=== PATIENT | female | born 1970 | race Caucasian/White ===

== ENCOUNTER 2016-08-19 13:02 | Outpatient (CLI) | END 2016-08-19 13:03 | disposition home or self-care (01) ==

== ENCOUNTER 2016-11-26 15:45 | Outpatient (CLI) | payer OTHER | END 2016-11-26 15:46 | disposition home or self-care (01) | DX: G47.33 Obstructive sleep apnea (adult) (pediatric) (principal) ==

== ENCOUNTER 2017-01-27 15:52 | Outpatient (CLI) | payer OTHER | END 2017-01-27 15:53 | disposition home or self-care (01) | LOC: SC 15:52 | PROVIDERS: ATTEND Nurse Practitioner Family | DX: G47.33 Obstructive sleep apnea (adult) (pediatric) (principal) | CPT/HCPCS: 99212; 99214 ==

== ENCOUNTER 2017-05-04 15:53 | Outpatient (CLI) | payer OTHER | END 2017-05-04 15:54 | disposition home or self-care (01) | LOC: SC 15:53 | PROVIDERS: ATTEND Nurse Practitioner Family | DX: G47.33 Obstructive sleep apnea (adult) (pediatric) (principal) | CPT/HCPCS: 99212; 99214 ==

== ENCOUNTER 2018-02-03 15:47 | Outpatient (CLI) | payer OTHER | END 2018-02-03 15:48 | disposition home or self-care (01) | LOC: SC 15:47 | PROVIDERS: ATTEND Nurse Practitioner Family | DX: G47.33 Obstructive sleep apnea (adult) (pediatric) (principal) | CPT/HCPCS: 99212; 99214 ==

== ENCOUNTER 2021-06-28 11:38 | Emergency (ER) | payer OTHER ==
[2021-06-28] MEDS ORDERED: SODIUM CHLORIDE 0.9% 1,000 ML IV STA ×2 (12:13→14:18)
[2021-06-28 12:14] LABS: BASOPHILS % (AUTO) 0.5 %; EOSINOPHILS % (AUTO) 0.2 %; HCT - HEMATOCRIT 52.9 % (37.0-47.0); HGB - HEMOGLOBIN 17.9 g/dL (12.0-16.0); LYMPHOCYTES # (AUTO) 0.9 10^3/uL (1.5-3.5); LYMPHOCYTES % (AUTO) 14.9 %; MEAN CORPUSCULAR HEMOGLOBIN 30.2 pg (27.0-31.0); MEAN CORPUSCULAR HGB CONC 33.8 g/dL (32.0-36.0); MEAN CORPUSCULAR VOLUME 89.2 fL (81.0-99.0); MEAN PLATELET VOLUME 10.1 fL (7.9-10.8); MONOCYTES # (AUTO) 0.4 10^3/uL (0.0-1.0); MONOCYTES % (AUTO) 6.7 %; NEUTROPHILS # (AUTO) 4.9 10^3/uL (1.5-6.6); NEUTROPHILS % (AUTO) 77.4 %; PLT - PLATELET COUNT 358 10^3/uL (130-450); RED BLOOD COUNT 5.93 10^6/uL (4.20-5.40); WHITE BLOOD COUNT 6.3 x10^3/uL (4.8-10.8)
--- NOTE | 2021-06-28 12:20 | ED Physician Documentation ---
History of Present Illness - Stated complaint Stated Complaint: C+, DIZZY SOA - Additonal information Additional information: 51-year-old female presents the emergency department for evaluation of productive cough fatigue myalgias chest pressure and dizziness. She reports that on June 18 she began having cough and congestion took a rapid home Covid test and was positive. Over the last week she has had low-grade temperature elevations up to 99. She endorses loss of taste but not smell. Past medical history most significant for hypertension. Denies alcohol or tobacco use. She has not yet vaccinated for COVID-19. She was waiting for her job to mandate it. She would like MAB is available to her today Review of Systems Constitutional: reports: Fever, Chills, Myalgias Eyes: reports: Reviewed and negative Ears: reports: Reviewed and negative Nose: reports: Congestion, Other (loss of taste but not smell) Throat: reports: Dental pain / toothache Cardiac: reports: Chest pain / pressure, Palpitations. denies: Pedal edema, Calf pain Respiratory: reports: Dyspnea, Cough. denies: Hemoptysis, Wheezing GI: denies: Abdominal Pain, Nausea, Vomiting, Diarrhea : denies: Dysuria, Frequency, Hesitancy Skin: denies: Rash, Lesions Musculoskeletal: denies: Neck pain PD PAST MEDICAL HISTORY - Present Medications Home Medications: Ambulatory Orders Medication Instructions Recorded Confirmed Albuterol Sulfate [Proair Hfa 1 - 2 puffs INH Q4H PRN #1 gm 06/28/21 Inhaler] Benzonatate [Tessalon] 100 mg PO TID PRN #20 cap 06/28/21 hydroCHLOROthiazide [Hydrodiuril] 25 mg PO DAILY 06/28/21 06/28/21 lisinopriL [Zestril] 5 mg PO DAILY 06/28/21 06/28/21 - Allergies Allergies/Adverse Reactions: Allergies Allergy/AdvReac Type Severity Reaction Status Date / Time methocarbamol AdvReac Unknown Verified 06/28/21 11:57 PD ED PE EXPANDED - General General: Alert, No acute distress, Well developed/nourished (obese) - Cardiac Cardiac: Regular Rate, Tachy, Radial strong equal, Cap refill < 2 sec. No: Murmur Present - Respiratory Respiratory: Rhonchi (generalized rhonci RUL; no wheeze). No: Distress, Labored - Abdomen Abdomen: No: Tender to palpation - Derm Derm: Normal color, Warm and dry. No: Rash - Extremities Extremities: Normal. No: Deformity, Tenderness, Pedal edema bilateral, Right calf TTP/cord, Left calf TTP/cord - Neuro Neuro: Alert and Oriented X 3, CNII-XII intact Results - Vitals Vitals: Vital Signs - 24 hr 06/28/21 06/28/21 12:12 12:21 Temperature 36.7 C 36.9 C Heart Rate 112 H 91 Respiratory 20 Rate Blood Pressure 155/109 H 155/90 H O2 Saturation 100 99 Oxygen O2 Source Room air - EKG (time done) 1240 Rate: Rate (enter#) (83) Rhythm: NSR [place]: Normal Intervals: Normal TN. No: Prolonged QT QRS: Normal Ischemia: Normal ST segments Compare to prior EKG: Old EKG unavailable Computer interpretation: Agree with computer - Labs Labs: Laboratory Tests 06/28/21 06/28/21 06/28/21 12:07 12:07 12:07 WBC 6.3 RBC 5.93 H Hgb 17.9 H Hct 52.9 H MCV 89.2 MCH 30.2 MCHC 33.8 RDW 13.0 Plt Count 358 MPV 10.1 Neut # (Auto) 4.9 Lymph # (Auto) 0.9 L [place] # (Auto) 0.4 Eos # (Auto) 0.0 Baso # (Auto) 0.0 Absolute Nucleated RBC 0.00 Nucleated RBC % 0.0 Sodium 136 Potassium 3.4 L Chloride 100 L Carbon Dioxide 22 Anion Gap 14.0 H BUN 21 H Creatinine 0.9 Estimated GFR (MDRD) 65 L Glucose 129 H Calcium 9.7 Total Bilirubin 0.9 AST 60 H ALT 77 H Alkaline Phosphatase 100 Troponin I High Sens 4.0 Total Protein 7.9 Albumin 4.8 Globulin 3.1 Albumin/Globulin Ratio 1.5 Lipase 32 Nasal Adenovirus (PCR) Nasal B. parapertussis DNA (PCR) Nasal Coronavir 229E PCR Nasal Coronavir HKU1 PCR Nasal Coronavir NL63 PCR Nasal Coronavir OC43 PCR Nasal Enterovir/Rhinovir PCR Nasal Influenza B PCR Nasal Influenza A PCR Nasal Parainfluen 1 PCR Nasal Parainfluen 2 PCR Nasal Parainfluen 3 PCR Nasal Parainfluen 4 PCR Nasal RSV (PCR) Nasal B.pertussis DNA PCR Nasal C.pneumoniae (PCR) Lonnie Human Metapneumo PCR Nasal M.pneumoniae (PCR) Nasal SARS-CoV-2 (PCR) 06/28/21 12:30 WBC RBC Hgb Hct MCV MCH MCHC RDW Plt Count MPV Neut # (Auto) Lymph # (Auto) [place] # (Auto) Eos # (Auto) Baso # (Auto) Absolute Nucleated RBC Nucleated RBC % Sodium Potassium Chloride Carbon Dioxide Anion Gap BUN Creatinine Estimated GFR (MDRD) Glucose Calcium Total Bilirubin AST ALT Alkaline Phosphatase Troponin I High Sens Total Protein Albumin Globulin Albumin/Globulin Ratio Lipase Nasal Adenovirus (PCR) NOT DETECTED Nasal B. parapertussis DNA (PCR) NOT DETECTED Nasal Coronavir 229E PCR NOT DETECTED Nasal Coronavir HKU1 PCR NOT DETECTED Nasal Coronavir NL63 PCR NOT DETECTED Nasal Coronavir OC43 PCR NOT DETECTED Nasal Enterovir/Rhinovir PCR NOT DETECTED Nasal Influenza B PCR NOT DETECTED Nasal Influenza A PCR NOT DETECTED Nasal Parainfluen 1 PCR NOT DETECTED Nasal Parainfluen 2 PCR NOT DETECTED Nasal Parainfluen 3 PCR NOT DETECTED Nasal Parainfluen 4 PCR NOT DETECTED Nasal RSV (PCR) NOT DETECTED Nasal B.pertussis DNA PCR NOT DETECTED Nasal C.pneumoniae (PCR) NOT DETECTED Lonnie Human Metapneumo PCR NOT DETECTED Nasal M.pneumoniae (PCR) NOT DETECTED Nasal SARS-CoV-2 (PCR) DETECTED A - Rads (name of study) CXR Radiology: Final report received (no acute cardiopulmonary abnormlity ) PD MEDICAL DECISION MAKING - ED course Complexity details: reviewed results, re-evaluated patient, d/w patient ED course: 51-year-old female presents emergency department for evaluation of cough congestion chest pressure. She began having symptoms about 10 days ago for COVID-19 and did test positive with a rapid home test. She is here today hoping to receive monoclonal antibodies. Chest x-ray shows no acute focal opacity. She remains positive for COVID-19 and given that her symptoms began within the last 10 days we have proceeded with monoclonal antibody therapy. Mab therapy for this patient with Covid was considered and discussed with the patient. The patient was provided the handout: ``Casirivimab plus Imdevimab Fact Sheet for Patients, Parents and Caregivers, and the information within was discussed with the patient. The patient was informed of alternatives prior to receiving Mab therapy. The patient was informed that these medications are unapproved drugs that are authorized for use under Emergency Use Authorization by the FDA. The patient will be monitored for at least 1 hour after infusion is complete. Her screening EKG shows no ischemic changes. Troponin is negative. She does have a modestly hemoconcentrated hemoglobin at 17.9. She was given 2 L of crystalloid here in the emergency department. We do note some mild LFT abnormalities. No significant T bili elevation. She is free of abdominal pain. The abnormal LFTs were discussed with the patient she is encouraged to follow- up with her primary care provider as an outpatient. Prescription for albuterol and Tessalon Perles was sent to the [facility]. Otherwise emergent return precautions were discussed. Departure - Departure Disposition: 01 Home, Self Care Clinical Impression: COVID-19, Elevated LFTs Prescriptions: Albuterol Sulfate [Proair Hfa Inhaler] 1 - 2 puffs INH Q4H PRN #1 gm PRN Reason: Shortness Of Air/Wheezing Benzonatate [Tessalon] 100 mg PO TID PRN #20 cap PRN Reason: Cough Comments: Monique muniz are seen today in the emergency department for cough and congestion. Your Covid test today is positive. Your symptoms began about 10 days ago and we did give you monoclonal antibody therapy here in the ER. It is important that you continue to quarantine for at least 10 days. Those living with you must quarantine for at least 90 days. You are a candidate to get the Covid vaccines but you must wait at least 90 days after Covid infection or receiving the monoclonal antibodies. Screening labs today show fairly concentrated hemoglobin as well as a mildly elevated BUN. You are somewhat dehydrated. I do encourage you to drink plenty of fluids at home. Your liver function tests are also slightly abnormal. You do report of a history of previous overuse of alcohol as well as excessive Tylenol use. When you are feeling better encourage you to follow-up the abnormal liver function test with your primary care provider. Those that have COVID-19 can benefit from sleeping on their stomach if they are able. If at any point you feel that your symptoms are worsening, you are developing worse fevers increasing shortness of breath have oxygen levels less than 90% then please return immediately to the ER for a second evaluation. Your prescriptions were sent to the [facility] [place]
[2021-06-28 12:34] LABS: ALBUMIN 4.8 g/dL (3.2-5.5); ALBUMIN/GLOBULIN RATIO 1.5 (1.0-2.2); BILIRUBIN,TOTAL 0.9 mg/dL (0.2-1.0); CALCIUM 9.7 mg/dL (8.5-10.3); CREATININE 0.9 mg/dL (0.4-1.0); POTASSIUM 3.4 mmol/L (3.5-5.0); TOTAL PROTEIN 7.9 g/dL (6.7-8.2)
--- NOTE | 2021-06-28 12:53 | XRAY Report ---
PROCEDURE: Chest 1 View X-Ray INDICATIONS: Areas of breath TECHNIQUE: One view of the chest was acquired. COMPARISON: None FINDINGS: Surgical changes and devices: None. Lungs and pleura: No pleural effusions or pneumothorax. Lungs are clear. Mediastinum: Mediastinal contours appear normal. Heart size is normal. Bones and chest wall: No suspicious bony lesions. Overlying soft tissues appear unremarkable. IMPRESSION: No acute cardiopulmonary abnormality. Reviewed by: Sav Hearn on 06/28/2021 12:51 PM [facility] Approved by: Sav Hearn on 06/28/2021 12:51 PM [facility] Station ID: [id number]
[2021-06-28 13:29] LABS: CORONAVIRUS 229E-RESP PCR NOT DETECTED; CORONAVIRUS HKU1-RESP PCR NOT DETECTED; CORONAVIRUS NL63-RESP PCR NOT DETECTED; CORONAVIRUS OC43-RESP PCR NOT DETECTED
[2021-06-28 13:30] LABS: B. PARAPERTUSSIS- RESP PCR PAN NOT DETECTED; B. PERTUSSIS- RESP PCR PANEL NOT DETECTED; C. PNEUMONIAE- RESP PCR PANEL NOT DETECTED; HUMAN METAPNEUMOVIRUS NOT DETECTED; INFLUENZA A- RESP PCR PANEL NOT DETECTED; INFLUENZA B - RESP PCR PANEL NOT DETECTED; M. PNEUMONIAE- RESP PCR PANEL NOT DETECTED; PARAINFLUENZA VIRUS 1 NOT DETECTED; PARAINFLUENZA VIRUS 2 NOT DETECTED; PARAINFLUENZA VIRUS 3 NOT DETECTED; PARAINFLUENZA VIRUS 4 NOT DETECTED; RHINOVIRUS/ENTEROVIRUS NOT DETECTED; RSV- RESP PCR PANEL NOT DETECTED
[2021-06-28 13:37] LABS: SARS-CoV-2 -RESP PCR PANEL DETECTED
[2021-06-28] MEDS ORDERED: CASIRIVIMAB/IMDEVIMAB 10 ML in SODIUM CHLORIDE 0.9% 50 ML IV ONE (14:10)
[2021-06-28 15:54] VITALS: BP 140/70
== END 2021-06-28 15:54 | disposition home or self-care (01) ==
LOC: ED 11:38
DX: U07.1 COVID-19 (principal); E86.0 Dehydration; R74.8 Abnormal levels of other serum enzymes; I10 Essential (primary) hypertension
CPT/HCPCS: 0202U; 36415; 71045; 80053; 83690; 84484; 85025; 93005; 96360; 96361; 99283; J7040; M0243; Q0244

== ENCOUNTER 2022-02-19 15:30 | Outpatient (CLI) | payer BC, OTHER ==
[2022-02-19 16:13] VITALS: BP 119/75
--- NOTE | 2022-02-19 16:13 | SLEEP CARE CONSULTATION ---
Information from patient questionnaire entered by Jose Berry MA. I have reviewed and concur with the information entered by Jose Berry MA. This document represents the service I personally performed and the decisions made by , Viola Prince ARNP. History of Present Illness Service Date and Time: 02/19/2022 1530 Previous diagnosis: Mild, Obstructive Sleep Apnea-Hypopnea Syndrome AHI: 9.6 Reason for follow up: annual ([place] 10/20/16, NEW RX? ) Equipment type: CPAP Equipment obtained from: [employer] (getting supplies as needed) Mask style: Nasal (Wisp) Mask brand: Respironics Backup mask available: Yes (old mask) Last cushion change: last week Prior sleep studies: Yes HPI additional information: BONG LOPEZ was diagnosed to have mild, AHI 9.6, obstructive sleep apnea-hypopnea syndrome and returned today for CPAP therapy annual follow-up. Sleep Study - Results Prior sleep studies: Yes CPAP Compliance Data - Data Reviewed with Patient Average duration of nightly device use: 7 HOURS 27 MINUTES Compliance rate %: 95.6 (90 days; 86/90 days used) Current pressure setting (cmH2O): 7.5 Humidity settin Heated hose settin Average residual AHI: 4.4 Average large leak: 0 Subjective Missed days of use due to: reports: travel (vacation/camping) Patient concerns: reports: air blowing in eyes, condensation in mask/hose (comes and goes). denies: aerophagia, mask discomfort, mask leak noise, nasal congestion, dry mouth, nose, throat, epistaxis, other Observed to snore while using device: No Current pressure setting perceived as: comfortable On therapy, patient: reports: sleeping better, awakening more refreshed, being more awake and alert during the day, more rested overall. denies: drowsiness while driving Initial [place] Sleepiness Scale score: 11 Current [place] Sleepiness Scale score: 9 (02/19/2022) Allergies and Home Medications Drug allergies reviewed: Yes (Robaxin) Home medication list reviewed: Yes (Paxil 7 mg for anxiety) Allergy and home medication list: Allergies methocarbamol Adverse Reaction (Verified 06/28/21 11:57) Unknown PAXIL 7 MG OD Review of Systems Review of systems same as previous: Yes (no changes) Physical Exam Vital signs obtained and entered by: Edward BERRY CMA NORM Blood Pressure: 119/75 (RESP 16, PULSE 76, RIGHT) Heart Rate: 75 O2 Saturation: 97 (PAPER MASK) Height: 5 ft 7 in Weight: 282 lb (CLOTHES) Weight change since last visit: LOOSE WEIGHT, LIMIT FOODS Body Mass Index: 44.1 BMI Classification: Morbidly Obese Impression and Plan 1. Obstructive Sleep Apnea-Hypopnea Syndrome, mild, with good treatment compliance and good apnea control. On CPAP therapy, the patient has better sleep quality and is more rested overall. Patient residual AHI is 4.4. I will increase her pressure to 8.5 cmH2O to help reduce this further. Patient has a Dreamstation that was last updated in 10/2016. I informed the patient that [employer] has a recall on several devices like the patients machine. Patient was encouraged to register their device online with [employer] for the recall to see if their device is affected. If their device is affected they should start a claim. Patient denies any black particles seen in machine or hoses, any unusual odors coming from device. Patient has not experienced any physical symptoms such as upper airway irritation, headache, skin or eye irritation, asthma, nausea/vomiting, difficulty breathing or chest pain. If patient is not able to sleep due to waking up choking, gasping for air or other respiratory distress that they may decide to continue using it until it is either replaced or repaired. Since the patients current machine is at least 5 years old, the patient is opting to update their device with a device that is not on the recall. Patient voiced understanding and agreement with plan. Patient's apnea severity and rationale for treatment to reduce apnea, improve sleep quality and reduce cardiovascular and cerebrovascular events was reviewed. I also reviewed the benefit of consistent device use of CPAP for hypertension. Patient has lost weight since her last visit and she was advised to continue to try to lose weight. She voiced understanding and agreement. * Update machine * Update supplies * Change auto CPAP pressure to 8.5 cmH2O * Notify me if snoring with mask or feeling that the pressure is too much or too little * Continue to try to lose weight * Call this office if any problems using CPAP * Return for follow up one month after receive new device, or sooner if concerns arise Counseling Topics: Weight loss health impact Visit Type: In Office Time Spent with Patient (minutes): 22 Provider Statement: I spent 100% of the Face to Face Visit with the patient with greater than 50% spent counseling the patient and coordination of care.
== END 2022-02-19 15:31 | disposition home or self-care (01) ==
LOC: SC 15:30
PROVIDERS: ATTEND Nurse Practitioner Family
DX: G47.33 Obstructive sleep apnea (adult) (pediatric) (principal); E66.01 Morbid (severe) obesity due to excess calories; Z68.41 Body mass index [BMI] 40.0-44.9, adult
CPT/HCPCS: 99212; 99213

== ENCOUNTER 2022-06-20 16:14 | Outpatient (CLI) | payer BC, OTHER ==
--- NOTE | 2022-06-20 16:30 | SLEEP CARE CONSULTATION ---
Information from patient questionnaire entered by Marly Willoughby. I have reviewed and concur with the information entered by Marly Willoughby. This document represents the service I personally performed and the decisions made by me, Viola Prince ARNP. History of Present Illness Service Date and Time: 06/20/2022 1614 Previous diagnosis: Mild, Obstructive Sleep Apnea-Hypopnea Syndrome AHI: 9.6 Reason for follow up: first compliance after device update Equipment type: CPAP (resmed) Equipment obtained from: [employer] (getting supplies as needed) Mask style: Nasal (Wisp) Backup mask available: Yes (old mask) Last cushion change: 1 month Prior sleep studies: Yes HPI additional information: BONG LOPEZ was diagnosed to have mild, AHI 9.6, obstructive sleep apnea-hypopnea syndrome and returned today for CPAP therapy first compliance after updating device follow-up. Sleep Study - Results Prior sleep studies: Yes CPAP Compliance Data - Data Reviewed with Patient Average duration of nightly device use: 7hrs, 35 min Compliance rate %: 100 (05/19/2022-06/17/2022; 30/30 days used) Current pressure setting (cmH2O): 8.4 Average residual AHI: 1.2 Central apnea: 0.3 Obstructive apnea: 0.7 Subjective Patient concerns: denies: aerophagia, mask discomfort, air blowing in eyes, mask leak noise, condensation in mask/hose, nasal congestion, dry mouth, nose, throat, epistaxis Observed to snore while using device: No Current pressure setting perceived as: comfortable On therapy, patient: reports: sleeping better, awakening more refreshed, being more awake and alert during the day, more rested overall. denies: drowsiness while driving Initial [place] Sleepiness Scale score: 11 Current [place] Sleepiness Scale score: 11 (06/20/2022) Allergies and Home Medications Drug allergies reviewed: Yes (Robaxin) Home medication list reviewed: Yes (no changes) Review of Systems Review of systems same as previous: Yes (no changes) Physical Exam Vital signs obtained and entered by: Marly Bahena MA Blood Pressure: 122/74 (left arm) Cuff size: long Heart Rate: 67 O2 Saturation: 97 Height: 5 ft 7 in Weight: 289 lb 6.4 oz Body Mass Index: 45.3 BMI Classification: Morbidly Obese Impression and Plan 1. Obstructive Sleep Apnea-Hypopnea Syndrome, mild, with good treatment compliance and good apnea control. On CPAP therapy, the patient has better sleep quality and is more rested overall. Patient has significant improvement of their sleep apnea and are satisfied with current CPAP therapy. Patient denies problems with oral dryness, nasal congestion, epistaxis, skin irritation or aerophagia. Patient's apnea severity and rationale for treatment to reduce apne a, improve sleep quality and reduce cardiovascular and cerebrovascular events was reviewed. I also reviewed the benefit of consistent device use of CPAP for hypertension. 2. Obesity, unspecified. Currently patients BMI is 45.3. Obesity increases the risk of apnea, CPAP pressure requirements and overall health risks especially cardiovascular and diabetes. Thus patient is advised to lose weight. Weight loss can be done with reducing portion size, reducing refined foods and balancing content with vegetables, fruit and whole grain foods. In addition, patient encouraged to get regular exercise. * Continue CPAP pressure at 8.4 cmH2O * Notify me if snoring with mask or feeling that the pressure is too much or too little * Attempt to lose weight * Call this office if any problems using CPAP * Return for follow up in 1 year, or sooner if concerns arise Counseling Topics: Weight loss health impact Visit Type: In Office Time Spent with Patient (minutes): 10 Provider Statement: I spent 100% of the Face to Face Visit with the patient with greater than 50% spent counseling the patient and coordination of care.
[2022-06-20 16:32] VITALS: BP 122/74
== END 2022-06-20 16:15 | disposition home or self-care (01) ==
LOC: SC 16:14
PROVIDERS: ATTEND Nurse Practitioner Family
DX: G47.33 Obstructive sleep apnea (adult) (pediatric) (principal); E66.01 Morbid (severe) obesity due to excess calories; Z68.42 Body mass index [BMI] 45.0-49.9, adult
CPT/HCPCS: 99212

== ENCOUNTER 2023-06-01 15:09 | Outpatient (CLI) | payer BC, OTHER ==
--- NOTE | 2023-06-01 16:42 | Ultrasound Report ---
PROCEDURE: Pelvic w/Transvaginal INDICATIONS: IUD INSERTION TECHNIQUE: Real-time scanning was performed of the pelvic organs, with image documentation. Additional endovagi nal scanning was necessary due to incomplete visualization of the adnexal and endometrial structures by transabdominal scanning. COMPARISON: None. FINDINGS: Uterus: Uterus is anteverted and normal in size at 8.98 x 4.06 x 5.39 cm. The myometrium is homogen eous. No discrete uterine fibroids. The endometrium measures 7 mm in combined thickness. Intrauterin e device is seen in its normal central endometrial location. No gross endometrial mass or fluid is se en. Complex cystic area/fluid is noted within the endocervical canal. Nabothian cysts are also noted within endocervical canal. Ovaries: The right ovary measures 1.8 x 1.1 x 2.4 cm, with a calculated ovarian volume of 2.4 cc. T he left ovary is not well seen. Less than 12 follicles can be seen in each ovary. No adnexal masses are seen. No cystic lesions measuring greater than 3 cm. Other: No pathologic free abdominal or pelvic fluid. IMPRESSION: 1. Intrauterine device is noted in its normal central endometrial location. No gross endometrial mass or fluid. 2. Complex fluid/cystic area is seen within endocervical canal and could represent small blood clots suggest clinical correlation. 3. Right ovary is within normal limits. Left ovary is not visualized on this study. No gross adnexal mass. Reviewed by: Jorge Goff MD on 06/01/2023 4:40 PM PDT Approved by: Jorge Goff MD on 06/01/2023 4:40 PM PDT Station ID: [id number]
== END 2023-06-01 15:10 | disposition home or self-care (01) ==
LOC: DI 15:09
PROVIDERS: ATTEND Nurse Practitioner
DX: Z30.430 Encounter for insertion of intrauterine contraceptive device (principal)

== ENCOUNTER 2023-12-11 14:43 | Outpatient (CLI) | payer BC, OTHER ==
--- NOTE | 2023-12-11 15:05 | Sleep Patient Instructions ---
Sleep Center Visit Summary - Patient Visit Information Reason for Visit: Annual follow-up - Patient Instructions Additional Instructions: You will continue with CPAP therapy with pressure set at 8.4 cmH2O. A supply prescription will be updated with your DME. We encourage you to continue to try to lose weight. Please follow up with the sleep care office in 1 year. - Clinic Information Contact: [facility] [address] [place] [address] [email or web address] T: [phone]
[2023-12-11 15:08] VITALS: BP 124/86; O2SAT 97
--- NOTE | 2023-12-11 15:08 | SLEEP CARE CONSULTATION ---
Information from patient questionnaire entered by Marcel Willoughby. I have reviewed and concur with the information entered by Marcel Willoughby. This document represents the service I personally performed and the decisions made by , Viola Prince ARNP. History of Present Illness Service Date and Time: 12/11/2023 1443 Previous diagnosis: Mild, Obstructive Sleep Apnea-Hypopnea Syndrome AHI: 9.6 (2015) Reason for follow up: annual (LAST SEEN 06/2022) Equipment type: CPAP (ResMed Airsense 11, s/u 04/2022) Equipment obtained from: [facility] (getting supplies as needed) Mask style: Nasal ([place]isp) Backup mask available: Yes Last cushion change: 1 week Prior sleep studies: Yes Year and Where: 2015 [facility] HPI additional information: BONG LOPEZ was diagnosed to have mild, AHI 9.6, obstructive sleep apnea-hypopnea syndrome and returned today for CPAP therapy annual follow-up. Sleep Study - Results Prior sleep studies: Yes CPAP Compliance Data - Data Reviewed with Patient Average duration of nightly device use: 7 HRS 32 MINS Compliance rate %: 98 (12/09/22-12/08/23; 362/365 days used) Current pressure setting (cmH2O): 8.4 Average residual AHI: 2.3 Central apnea: 1 Obstructive apnea: 1.1 Hypopnea: 0.2 Average large leak: 0 L/min Subjective Patient concerns: reports: air blowing in eyes, condensation in mask/hose. denies: aerophagia, mask discomfort, mask leak noise, nasal congestion, dry mouth, nose, throat, epistaxis Observed to snore while using device: No Current pressure setting perceived as: comfortable On therapy, patient: reports: sleeping better, awakening more refreshed, being more awake and alert during the day, more rested overall. denies: drowsiness while driving Initial Pierson Sleepiness Scale score: 11 Current Pierson Sleepiness Scale score: 7 (12/11/23) Allergies and Home Medications Known drug allergies: Yes (as listed) Allergy and home medication list: Allergies methocarbamol Adverse Reaction (Verified 12/09/23 13:09) Unknown Review of Systems Review of systems same as previous: Yes (NO CHANGE) Physical Exam Vital signs obtained and entered by: MARCEL Bahena MA Blood Pressure: 124/86 (RIGHT ARM) Cuff size: long Heart Rate: 89 O2 Saturation: 97 Height: 5 ft 7 in Weight: 267 lb Weight change since last visit: 22 lb loss Body Mass Index: 41.8 BMI Classification: Morbidly Obese Impression and Plan 1. Obstructive Sleep Apnea-Hypopnea Syndrome, mild, with good treatment compliance and good apnea control. On CPAP therapy, the patient has better sleep quality and is more rested overall. Patient has significant improvement of their sleep apnea and is satisfied with current CPAP therapy. Patient denies problems with oral dryness, nasal congestion, epistaxis, skin irritation or aerophagia. Patient's apnea severity and rationale for treatment to reduce apnea, improve sleep quality and reduce cardiovascular and cerebrovascular events was reviewed. I also reviewed the benefit of consistent device use of CPAP for hypertension. 2. Obesity, unspecified. Currently patients BMI is 41.8. She has lost weight. Obesity increases the risk of apnea, CPAP pressure requirements and overall health risks especially cardiovascular and diabetes. Thus patient is advised to continue to try to lose weight. * Continue CPAP pressure at 8.4 cmH2O * Update supply prescription * Notify me if snoring with mask or feeling that the pressure is too much or too little * Attempt to lose weight * Call this office if any problems using CPAP * Return for follow up in 12 months, or sooner if concerns arise Counseling Topics: Spare mask, Weight loss health impact Prescriptions: Device supplies Follow up with Sleep Care in: 1 year Visit Type: In Office Time Spent with Patient (minutes): 12 Provider Statement: I spent 100% of the Face to Face Visit with the patient with greater than 50% spent counseling the patient and coordination of care.
== END 2023-12-11 14:44 | disposition home or self-care (01) ==
LOC: SC 14:43
PROVIDERS: ATTEND Nurse Practitioner Family
DX: G47.33 Obstructive sleep apnea (adult) (pediatric) (principal); E66.01 Morbid (severe) obesity due to excess calories; Z68.41 Body mass index [BMI] 40.0-44.9, adult
CPT/HCPCS: 99212; 99213